=== PATIENT | female | born 1975 ===

== ENCOUNTER 2023-06-22 16:53 | Inpatient (IN) | payer BC, MEDICAID, SELFPAY ==
[2023-06-22 17:02] VITALS: BP 106/68; PULSE 91; RESP 18; TEMP 36.5; O2SAT 97
[2023-06-22] MEDS: blistex lip oint 7 gm Tube 1 APPLIC TOPICAL (17:46)
[2023-06-22 17:47] VITALS: BMI 20.9
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
[2023-06-22 19:49] VITALS: BP 116/78; PULSE 96; RESP 18; TEMP 36.9; O2SAT 95
[2023-06-23 06:00] VITALS: BP 90/57; PULSE 86; RESP 16; TEMP 36.8; O2SAT 98
[2023-06-23] MEDS: nicotine 21 mg Patch 1 PATCH TRANSDERMA (08:04)
[2023-06-23 14:00] VITALS: BP 116/78; PULSE 91; RESP 16; TEMP 36.6; O2SAT 98
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
[2023-06-23] MEDS: nicotine 2 mg Gum BUCCAL (18:12)
[2023-06-23 20:09] VITALS: BP 108/74; PULSE 96; RESP 17; TEMP 36.9; O2SAT 96
[2023-06-24 06:00] VITALS: BP 90/60; PULSE 83; RESP 15; TEMP 36.8; O2SAT 96
[2023-06-24] MEDS: aspirin 81 mg EC Tablet PO (07:52)
[2023-06-24] MEDS: nicotine 2 mg Gum BUCCAL (11:21)
[2023-06-24 14:00] VITALS: BP 112/74; PULSE 99; RESP 16; TEMP 36.6; O2SAT 100
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
[2023-06-24] MEDS: citalopram 20 mg Tablet 10 MG PO (18:01)
[2023-06-24 20:24] VITALS: BP 112/80; PULSE 88; RESP 18; TEMP 36.8; O2SAT 98
[2023-06-25 06:00] VITALS: BP 90/56; PULSE 81; RESP 16; TEMP 37; O2SAT 94
[2023-06-25] MEDS: aspirin 81 mg EC Tablet PO (10:00)
[2023-06-25] MEDS: citalopram 20 mg Tablet 10 MG PO (10:00)
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
[2023-06-25] MEDS: nicotine 4 mg lozenge MUCOUS MEM ×3 (13:17→18:31)
[2023-06-25 14:00] VITALS: BP 106/72; PULSE 85; RESP 14; TEMP 36.4; O2SAT 98
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
[2023-06-25 20:02] VITALS: BP 90/51; PULSE 92; RESP 16; TEMP 36.6; O2SAT 96
[2023-06-26 06:00] VITALS: BP 84/56; PULSE 80; RESP 12; TEMP 36.8; O2SAT 96
[2023-06-26] MEDS: aspirin 81 mg EC Tablet PO (08:22)
[2023-06-26] MEDS: citalopram 20 mg Tablet PO (08:22)
[2023-06-26 14:00] VITALS: BP 83/51; PULSE 81; RESP 14; TEMP 36.8; O2SAT 96
[2023-06-26] MEDS: nicotine 4 mg lozenge MUCOUS MEM (14:01)
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
[2023-06-26 19:50] VITALS: BP 97/55; PULSE 56; RESP 15; TEMP 36.8; O2SAT 95
[2023-06-27 06:00] VITALS: BP 85/48; PULSE 98; RESP 16; TEMP 36.8; O2SAT 96
[2023-06-27] MEDS: aspirin 81 mg EC Tablet PO (08:38)
[2023-06-27] MEDS: citalopram 20 mg Tablet PO (08:38)
[2023-06-27] MEDS: nicotine 4 mg lozenge MUCOUS MEM ×3 (10:10→18:02)
[2023-06-27 14:00] VITALS: BP 107/70; PULSE 86; RESP 16; TEMP 37.1; O2SAT 95
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
[2023-06-27 19:43] VITALS: BP 93/56; PULSE 96; RESP 17; TEMP 36.9; O2SAT 96
[2023-06-28 06:00] VITALS: BP 88/54; PULSE 85; RESP 16; TEMP 36.8; O2SAT 94
--- NOTE | 2023-06-28 07:49 | PC.NURSE ---
Patient reports some anxiety and depression; patient unable to verbalize the cause of these feelings. Patient denies SI, HI, AVH. Patient reports blood in urine, abdominal pain for the past couple of days. Urinalysis ordered.
[2023-06-28] MEDS: aspirin 81 mg EC Tablet PO (08:26)
[2023-06-28] MEDS: citalopram 20 mg Tablet PO (08:26)
[2023-06-28] MEDS: ibuprofen 600 mg Tablet PO (08:50)
[2023-06-28 09:41] LABS: Add Urine Culture? No; Amorphous Sediment Urine 3+ /hpf; Bacteria Urine 1+ /hpf; Bilirubin Urine Neg (Negative); Blood Urine Neg (Negative); Glucose Urine UA Norm (Normal); Ketones Urine Negative (Negative); Leukocyte Esterase Urine Negative (Negative); Nitrate Urine Negative (Negative); Protein Urine Neg (Negative); Specific Gravity, Urine 1.015 (1.005-1.030); Sulfosalicylic Acid Urine Negative (Negative); Urine Appearance Cloudy (CLEAR); Urine Color Yellow (Yellow); Urobilinogen Urine Norm (Negative); pH Urine 8 (5-7)
--- NOTE | 2023-06-28 12:43 | USR_ITS ---
PROCEDURE INFORMATION: Exam: US Retroperitoneal; Complete; Kidneys and Bladder Exam date and time: 06/28/2023 2:12 PM Age: 47 years old Clinical indication: Abdominal pain; Generalized; Additional info: Bilateral kindey and bladder TECHNIQUE: Imaging protocol: Real-time ultrasound of the retroperitoneum with image documentation. Complete exam focused on the kidneys and bladder. COMPARISON: No relevant prior studies available. FINDINGS: Right kidney: Normal. No stones. No hydronephrosis. 11.6 cm in length. Left kidney: Normal. No stones. No hydronephrosis. 11.6 cm in length. Aorta: Unremarkable abdominal aorta. Inferior vena cava: Unremarkable IVC. Urinary bladder: Unremarkable. US/US renal BI* [id number] IMPRESSION: Unremarkable kidneys and bladder.
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
[2023-06-28 13:24] VITALS: BP 102/66; PULSE 75; RESP 14; TEMP 36.6; O2SAT 95
[2023-06-28 13:33] LABS: Basophils # 0.1 10^3/uL (0.0-0.1); Basophils % 0.6 %; Eosinophils # 0.2 10^3/uL (0.0-0.8); Eosinophils % 1.9 %; Hematocrit 39.9 % (36-47); Lymphocytes # 1.9 10^3/uL (0.8-4.8); Lymphocytes % 18.7 %; Mean Corpuscular HGB Conc 32.8 g/dL (30-55); Mean Corpuscular Hemoglobin 32.3 pg (27-33); Mean Corpuscular Volume 98.3 fl (85-98); Mean Platelet Volume 10.9 fL (7.4-10.4); Monocytes % 9.5 %; Neutrophils # 6.88 10^3/uL (1.8-7.7); Nucleated Red Blood Cells % 0 %; Platelet Count 306 10^3/cmm (157-399); Red Blood Count 4.06 10^6/uL (3.85-5.65); Red Cell Distribution Width 11.7 % (12.1-15.1); White Blood Count 10.11 10^3/uL (3.29-11.43)
[2023-06-28 13:38] LABS: Blood Urea Nitrogen 14 mg/dL (6-20); Calcium 9.1 mg/dL (8.5-10.5); Carbon Dioxide 26 mmol/L (22-29); Chloride 103 mmol/L (98-107); Glomerular Filtration Rate 89.3 mL/min (90-130); Glucose 107 mg/dL (65-115); Osmolality Calculated 289 mOsm/kg (285-295); Sodium 139 mmol/L (136-145)
[2023-06-28 13:44] LABS: Procalcitonin 0.02 ng/mL (0-0.5)
[2023-06-28 13:49] LABS: Erythrocyte Sedimentation Rate 35 mm/hr (0-15)
[2023-06-28] MEDS: ciprofloxacin 500 mg Tablet 250 MG PO (13:58)
[2023-06-28 14:05] LABS: HIV 1 & 2 Antigen Non-Reactive (Non-Reactiv)
[2023-06-28 14:06] LABS: HIV 1 & 2 Antibody Non-Reactive (Non-Reactiv)
[2023-06-28 14:08] LABS: Hepatitis A Antibody IgM Non-Reactive (Nonreactive); Hepatitis B Core IgM Non-Reactive (Nonreactive); Hepatitis B Surface Antigen Non-Reactive (Nonreactive); Hepatitis C Virus Antibody Non-Reactive (Nonreactive)
[2023-06-28 14:21] LABS: Rapid Plasma Reagin Syphilis Nonreactive (Nonreactive)
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
[2023-06-28] MEDS: nicotine 4 mg lozenge MUCOUS MEM (19:26)
[2023-06-28 19:57] VITALS: BP 107/70; PULSE 78; RESP 13; TEMP 36.5; O2SAT 96
[2023-06-29] MEDS: ciprofloxacin 500 mg Tablet 250 MG PO ×3 (01:56→19:52)
[2023-06-29 06:00] VITALS: BP 90/50; PULSE 80; RESP 15; TEMP 36.8; O2SAT 96
[2023-06-29] MEDS: aspirin 81 mg EC Tablet PO (08:44)
[2023-06-29] MEDS: citalopram 20 mg Tablet 30 MG PO (08:44)
[2023-06-29] MEDS: ARIPiprazole 2 mg Tablet PO (08:44)
[2023-06-29] MEDS: nicotine 4 mg lozenge MUCOUS MEM (13:05)
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
[2023-06-29 14:00] VITALS: BP 115/74; PULSE 118; RESP 16; TEMP 36.9; O2SAT 94
[2023-06-29] MEDS: trazodone 50 mg Tablet PO (19:56)
[2023-06-29 20:39] VITALS: BP 99/67; PULSE 74; RESP 18; TEMP 36.7; O2SAT 96
[2023-06-30 06:00] VITALS: BP 91/59; PULSE 84; RESP 16; O2SAT 95
[2023-06-30] MEDS: ARIPiprazole 10 mg Tablet 5 MG PO (09:24)
[2023-06-30] MEDS: ciprofloxacin 500 mg Tablet 250 MG PO ×2 (09:25→20:39)
[2023-06-30] MEDS: aspirin 81 mg EC Tablet PO (09:25)
[2023-06-30] MEDS: citalopram 20 mg Tablet 40 MG PO (09:26)
[2023-06-30] MEDS: nicotine 4 mg lozenge MUCOUS MEM ×2 (09:51→14:50)
[2023-06-30 13:33] VITALS: BP 113/71; PULSE 102; RESP 16; TEMP 36.6; O2SAT 93
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
[2023-06-30] MEDS: nicotine 2 mg Gum BUCCAL (16:56)
[2023-06-30] MEDS: ondansetron 4 MG Tablet PO (20:39)
[2023-06-30] MEDS: trazodone 50 mg Tablet PO (20:39)
[2023-06-30 20:43] VITALS: BP 98/62; PULSE 81; RESP 16; TEMP 36.8; O2SAT 96
[2023-06-30 20:56] LABS: SARS Covid-2 Antigen Negative (Negative)
[2023-06-30 22:13] LABS: Influenza A by IFA Negative (Negative); Influenza B by IFA Negative (Negative)
[2023-07-01 06:00] VITALS: BP 82/44; PULSE 77; RESP 16; TEMP 36.9; O2SAT 95
[2023-07-01] MEDS: aspirin 81 mg EC Tablet PO (08:25)
[2023-07-01] MEDS: ciprofloxacin 500 mg Tablet 250 MG PO (08:26)
[2023-07-01] MEDS: citalopram 20 mg Tablet 40 MG PO (08:26)
[2023-07-01] MEDS: ARIPiprazole 10 mg Tablet PO (08:26)
[2023-07-01 10:00] LABS: Chlamydia Trachomatis RNA TMA NOT DETECTED (NOT DETECTED); Neisseria Gonorrhoeae RNA, TMA NOT DETECTED (NOT DETECTED)
[2023-07-01 10:09] LABS: Trichomonas Vaginalis RNA NOT DETECTED (NOT DETECTED)
[2023-07-01 14:00] VITALS: BP 106/67; PULSE 74; RESP 16; TEMP 36.5; O2SAT 95
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
[2023-07-01 21:22] VITALS: BP 98/63; PULSE 85; RESP 16; TEMP 37.1; O2SAT 96
[2023-07-02 06:00] VITALS: RESP 16
[2023-07-02] MEDS: nicotine 2 mg Gum BUCCAL (08:50)
[2023-07-02] MEDS: citalopram 20 mg Tablet 40 MG PO (08:50)
[2023-07-02] MEDS: aspirin 81 mg EC Tablet PO (08:50)
[2023-07-02] MEDS: ARIPiprazole 10 mg Tablet PO (08:51)
[2023-07-02 14:00] VITALS: BP 100/66; PULSE 82; RESP 16; TEMP 36.5; O2SAT 96
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
[2023-07-02 19:34] VITALS: BP 94/56; PULSE 79; RESP 19; TEMP 36.8; O2SAT 95
[2023-07-03 06:00] VITALS: BP 99/66; PULSE 77; RESP 18; TEMP 36.4; O2SAT 95
[2023-07-03] MEDS: citalopram 20 mg Tablet 40 MG PO (09:15)
[2023-07-03] MEDS: ARIPiprazole 10 mg Tablet PO (09:15)
[2023-07-03] MEDS: nicotine 2 mg Gum BUCCAL (09:15)
[2023-07-03] MEDS: aspirin 81 mg EC Tablet PO (09:15)
[2023-07-03 12:13] LABS: SARS Covid-2 Antigen negative (Negative)
[2023-07-03 12:16] LABS: Influenza A by IFA Negative (Negative); Influenza B by IFA Negative (Negative)
[2023-07-03 14:00] VITALS: BP 102/69; PULSE 100; RESP 18; TEMP 37; O2SAT 95
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
[2023-07-03 20:01] VITALS: BP 98/58; PULSE 72; RESP 17; TEMP 36.8; O2SAT 97
[2023-07-04 06:00] VITALS: BP 91/51; PULSE 67; RESP 16; TEMP 36.9; O2SAT 96
--- NOTE | 2023-07-04 08:50 | PC.NURSE ---
During morning assessment, patient stated that she has depression 04/10. Patient denies SI, HI, AVH. Patient resting in bed. Patient got up for breakfast. Patient stated that she didn't want to take her morning medications because they make her tired. This nurse educated patient on importance of not ubruptly stopping medications. Patient stated that she might be willing to take them after she rests a while.
[2023-07-04] MEDS: citalopram 20 mg Tablet 40 MG PO (09:36)
[2023-07-04] MEDS: aspirin 81 mg EC Tablet PO (09:37)
[2023-07-04] MEDS: ARIPiprazole 10 mg Tablet PO (09:37)
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
[2023-07-04 10:25] VITALS: BP 91/51; PULSE 67; RESP 16; TEMP 36.9; O2SAT 96
[2023-07-04] MEDS: nicotine 2 mg Gum BUCCAL (14:29)
== END 2023-07-04 15:16 | disposition home or self-care (01) | DRG 885 ==
PROVIDERS: Family Medicine; Psychiatry & Neurology Psychiatry; Admitting Provider Psychiatry & Neurology Psychiatry; Visit Provider Psychiatry & Neurology Psychiatry
DX: F32.2 Major depressive disorder, single episode, severe without psychotic features (principal); Z59.02 Unsheltered homelessness; F43.10 Post-traumatic stress disorder, unspecified; F41.9 Anxiety disorder, unspecified; Z91.51 Personal history of suicidal behavior; Z62.810 Personal history of physical and sexual abuse in childhood; N93.9 Abnormal uterine and vaginal bleeding, unspecified; R30.0 Dysuria; Z91.410 Personal history of adult physical and sexual abuse; T43.212A Poisoning by selective serotonin and norepinephrine reuptake inhibitors, intentional self-harm, initial encounter; T43.592A Poisoning by other antipsychotics and neuroleptics, intentional self-harm, initial encounter; Y92.9 Unspecified place or not applicable
CPT/HCPCS: 36415; 76770; 80048; 80074; 81001; 84145; 85025; 85651; 86140; 86592; 87086; 87426; 87491; 87591; 87804; 87806; 97150; 97165; Q0162